=== PATIENT | female | born 1995 | race Asian ===

== ENCOUNTER 2025-04-30 21:11 | Emergency (ER) | payer BC ==
[~2025-04-30] VITALS: Ht 152.4 cm; Wt 46.0 kg
[2025-04-30 21:13] VITALS: O2SAT 98
[2025-04-30 22:39] LABS: BASOPHILS % 0.4 % (0.0-2.0); EOSINOPHILS % 0.2 % (0.0-5.0); HEMATOCRIT. 40.9 % (36.0-48.0); HEMOGLOBIN. 13.5 g/dL (12.0-16.0); LYMPHOCYTES % 8.1 % (20.0-50.0); MEAN PLATELET VOLUME 8.0 fl (7.4-10.4); MONOCYTES % 3.4 % (2.0-8.0); NEUTROPHILS % 87.9 % (40.0-76.0); PLATELET 304 x1000/uL (130-400); RED BLOOD CELL COUNT 4.40 mill/uL (4.2-5.4); RED CELL DISTRIBUTION WIDTH 12.4 % (11.6-14.6)
[2025-04-30 22:55] LABS: CREATININE 0.8 mg/dL (0.6-1.0); UREA NITROGEN BLOOD 14 mg/dL (9-23)
[2025-04-30 22:56] LABS: TROPONIN I HIGH SENSITIVITY < 4 ng/L (3.0-34)
[2025-04-30] MEDS ORDERED: AZIT250T12 MT (23:24)
[2025-04-30 23:33] VITALS: BP 109/71; PULSE 66; RESP 18; TEMP 36.8; O2SAT 98
== END 2025-04-30 23:34 | disposition home or self-care (01) ==
LOC: ER 21:11
DX: J06.9 Acute upper respiratory infection, unspecified (principal); R07.89 Other chest pain; Z79.899 Other long term (current) drug therapy
CPT/HCPCS: 36415; 71045; 80048; 84484; 85025; 93005; 99285